=== PATIENT | male | born 1940 | race Caucasian/White ===

== ENCOUNTER 2016-06-18 12:55 | Inpatient (IN) | payer MEDICARE ==
[~2016-06-18] VITALS: Ht 177.8 cm; Wt 100.0 kg
[2016-06-30] MEDS ORDERED: ASPI1TAB69 PO (11:49)
[2016-06-30] MEDS ORDERED: MULT1TAB85 PO (11:49)
[2016-06-30] MEDS ORDERED: SIMV20TA PO (11:49)
[2016-06-30] MEDS ORDERED: LISI20TA PO (11:49)
[2016-07-16] MEDS ORDERED: SODIUM CHLORID 0.9% 500 ML IV SCH (10:00)
[2016-07-16] MEDS ORDERED: INSULIN HUMAN REGULAR 1,000 UNITS/10 ML VIAL SQ PRN (10:00)
[2016-07-16] MEDS ORDERED: METOPROLOL TARTRATE 25 MG TAB PO PRN (10:00)
[2016-07-16 10:26] VITALS: BP 137/71; PULSE 67; RESP 18; TEMP 98.1; O2SAT 96
[2016-07-16] MEDS ORDERED: VANCOMYCIN HCL 1000 MG VIAL ONE (10:29)
[2016-07-16] MEDS ORDERED: ceFAZolin 2 GM PREMIX 50 ML ONE (10:29)
[2016-07-16] MEDS ORDERED: SODIUM CHLOR 0.9% 250 ML INJ 250 ML ONE (10:30)
[2016-07-16] MEDS: LACTATED RINGER'S 1000 ML IV SCH (10:35)
[2016-07-16] MEDS ORDERED: DEXAMETHASONE SOD PHOS 20 MG/5 ML VIAL ONE (11:37)
[2016-07-16] MEDS ORDERED: MIDAZOLAM HCL 2 MG/2 ML VIAL ONE (12:13)
[2016-07-16] MEDS ORDERED: FAMOTIDINE 20 MG/2 ML VIAL ONE (12:13)
[2016-07-16] MEDS ORDERED: fentaNYL CITRATE 250 MCG/5 ML AMP ONE ×2 (12:36→15:50)
[2016-07-16] MEDS ORDERED: ACETAMINOPHEN 1000 MG/100 ML VIAL IV ONE (12:36)
[2016-07-16] MEDS ORDERED: POVIDONE IODINE 7.5% SCRUB 118 ML BOTTLE TOP SCH (13:30)
[2016-07-16] MEDS ORDERED: VANCOMYCIN 1000 MG/NS 250 ML (for <70 kg) IV SCH ×2 (13:30)
[2016-07-16] MEDS: TRANEXAMIC ACID IV SCH ×2 (13:30→13:35)
[2016-07-16] MEDS ORDERED: ceFAZolin 2 GM PREMIX 50 ML IV SCH (13:30)
[2016-07-16] MEDS: EXPAREL PERI-ARTICULAR INJECTION (TOTAL VOL. 60 ML) P-ARTICULR SCH ×4 (13:30→13:49)
[2016-07-16] MEDS: SODIUM CHLORIDE 0.9% IV SCH ×2 (13:30→13:35)
[2016-07-16] MEDS ORDERED: NEOSTIGMINE 3 MG/3 ML SYR IV ONE (13:40)
[2016-07-16] MEDS ORDERED: PHENYLEPH/NS 1000 MCG/10 ML SYR IV ONE (13:40)
[2016-07-16] MEDS ORDERED: LACTATED RINGER'S 1000 ML INJ 2,000 ML IV ONE (13:40)
[2016-07-16] MEDS ORDERED: PROPOFOL 200 MG/20 ML AMP IV ONE (13:40)
[2016-07-16] MEDS ORDERED: ePHEDrine/NS 25 MG/5 ML SYR IV ONE (13:40)
[2016-07-16] MEDS ORDERED: ONDANSETRON HCL 4 MG/2 ML VIAL IV PUSH ONE (13:40)
[2016-07-16] MEDS ORDERED: DEXAMETHASONE SOD PHOS 20 MG/5 ML VIAL IV SCH (13:45)
[2016-07-16] MEDS ORDERED: GENTAMICIN SULFATE 80 MG/2 ML VIAL IRRIGATION ONE (13:49)
--- NOTE | 2016-07-16 15:24 | PD.OP ---
cc: Ananda Colvin MD Operative Report Date of Surgery: Jul 16, 2016 Preoperative Diagnosis: Left hip severe osteoarthritis Postoperative Diagnosis: Same Procedure: Left total hip arthroplasty Anesthesia: Gen. Surgeon: Ananda Colvin Event Planner(s): DENAE Pete The surgical procedure was assisted by my Advanced Registered Nurse Practitioner. My CONTRACTING OFFICER presence was necessary throughout this case for the manipulation and positioning of the surgical extremity. My CONTRACTING OFFICER was assisting me throughout the duration of this procedure. The skill set of an Advance Registered Nurse Practitioner was medically necessary to complete this procedure. During the surgical case, the surgical elastic knitter was working at the back table and the Advance Registered Nurse Practitioner was directly assisting me. Operation and Findings: IMPLANT DESCRIPTION: 1. Wyatt Gription Cup, acetabular size 62. 2. Wyatt AltrX polyethylene, neutral. 4. Corail femoral stem size 13, no collar, high offset. 5. Femoral head/neck metal, 36, +1.5. ESTIMATED BLOOD LOSS: 250 cc. JUSTIFICATION FOR PROCEDURE: The patient has end-stage osteoarthritis to the hip. There is an attached conservative measures pathway form in the chart that describes the nonoperative measures that were undertaken prior to consideration of surgical management. The patient understood the risks and benefits of surgical management. See my office notes for further details. PROCEDURE: The patient was brought back to the operative theatre. Adequate anesthesia was obtained. The patient received intravenous vancomycin and Ancef. The patient was carefully placed on the operative table. The lower extremity was prepped and draped in the usual sterile fashion. Fluoroscopic images were obtained. We made a standard anterior incision over the hip. We dissected through the TFL fascia, exposing the anterior capsule. Arthrotomy was performed in a T-shaped fashion. The capsule was tagged with a #2 FiberWire. End-stage arthritis was identified. Osteotomy was performed through the femoral neck exposing the acetabulum. Remnants of the labrum were resected and osteophytes were removed. We sequentially reamed the acetabulum. We trialed the hip and placed the final cup into position. This was done under fluoroscopic guidance to obtain the appropriate inclination and anteversion. We decided to further fixate the cup with 2 screws. The posterior screw had purchase within the column and had an excellent bite. The lateral screw was within the cancellus bone and had a good to excellent bite. A manhole cover was placed into the acetabular component. We then placed the final polyethylene into position and confirmed that it was well seated. Capsular attachments on the calcar and the inner aspect of the greater trochanter were resected. On the proximal aspect of the femur we used a rongeur , box osteotome, canal finder, sequential broaches and lateralizing rasp. We calcar planed the proximal femur. Then thoroughly irrigated the wound. We trialed the hip with the appropriate size stem. We placed the final stem in to position and trialed again. The hip was stable while it was externally rotated 70 degrees when the leg was lowered to the floor. The final head was applied, and final fluoroscopic images were obtained. The wound was thoroughly irrigated again. Interarticular injection of liposomal bupivacaine was given. The capsule was partially closed with #1 Vicryl, since the capsule was rather thin and found to be in fairly poor condition at the beginning of the case. The deep fascia was closed with a #2 Stratafix, followed by 2-0 Vicryl in the skin and jacinta. Postop plan is to weight-bear as tolerated. DVT prophylaxis will be performed with SCDmorena, JAYLON givens, early mobilization, and Lovenox followed by aspirin. Ananda Colvin MD Jul 16, 2016 15:24
[2016-07-16] MEDS ORDERED: ASPI325T PO (15:26)
[2016-07-16] MEDS ORDERED: ENOX40P SQ (15:26)
[2016-07-16] MEDS ORDERED: NORC5TAB PO (15:26)
[2016-07-16] MEDS ORDERED: NALOXONE HCL 0.4 MG/ML AMP IV PRN (15:30)
[2016-07-16] MEDS ORDERED: SODIUM CHLORIDE 0.9% FLUSH 5 ML FLUSH IVF PRN (15:30)
[2016-07-16] MEDS ORDERED: diphenhydrAMINE HCL 50 MG/ML VIAL IV PRN (15:30)
[2016-07-16] MEDS ORDERED: ONDANSETRON HCL 4 MG/2 ML VIAL IVP PRN (15:30)
[2016-07-16] MEDS ORDERED: ALUMINUM/MAGNESIUM/SIMETH 30 ML CUP PO PRN (15:30)
[2016-07-16] MEDS ORDERED: BISACODYL 10 MG SUPP PR PRN (15:30)
[2016-07-16] MEDS ORDERED: MAGNESIUM HYDROXIDE SUSP 30 ML CUP PO PRN (15:30)
[2016-07-16] MEDS ORDERED: ACETAMINOPHEN/HYDROcodone 325 MG/5 MG TAB PO PRN (15:30)
[2016-07-16] MEDS ORDERED: Post-op Orders (for Pharmacy) MISC XX ONE (15:30)
[2016-07-16] MEDS ORDERED: MORPHINE SULFATE 4 MG/ML INJ IV PUSH PRN (15:30)
[2016-07-16] MEDS ORDERED: MORPHINE SULFATE 4 MG/ML INJ ONE (15:50)
--- NOTE | 2016-07-16 15:50 | HHI.DCPOC ---
Discharge Care Plan Diagnosis: (1) Osteoarthritis of left hip (2) Status post total hip replacement, left Your Health Problems Are: Difficulty with ADL Goals to Promote Your Health * To prevent worsening of your condition and complications * To maintain your health at the optimal level Directions to Meet Your Goals Take your medications as prescribed Follow your dietary instruction Follow activity as directed Keep your appointments as scheduled Take your immunizations and boosters as scheduled If your symptoms worsen call your PCP, if no PCP go to Urgent Care Center or Emergency Room Smoking is Dangerous to Your Health. Avoid second hand smoke Call the 24-hour hour crisis hotline for domestic abuse at Lazaro Fortune Jul 16, 2016 15:49
--- NOTE | 2016-07-16 15:50 | HHI.FF ---
Face to Face Verification Diagnosis: (1) Osteoarthritis of left hip (2) Status post total hip replacement, left Physical Therapy Gait training, Transfer training, bed to chair Hip: Total hip Left LE Weight Bearing: WB as tolerated Left LE Range of Motion: Active ROM Nursing Nursing: Kervin teaching, Dressing changes Dressing Changes: Daily dressing change I have seen patient Thomas Denton on 07/16/16. My clinical findings support the need for the requested home health care services because: Limited ability to care for self High risk of falls I certify that my clinical findings support that this patient is homebound because: Post-op weakness Unsteady gait/balance Lazaro Fortune Jul 16, 2016 15:50
--- NOTE | 2016-07-16 15:50 | RADRPT ---
EXAM DATE/TIME: 07/16/2016 13:33 [facility] COMPARISON: No previous studies available for comparison. INDICATIONS : Left total hip replacement. MEDICAL HISTORY : None. SURGICAL HISTORY : None. ENCOUNTER: Initial ACUITY: 1 day PAIN SCORE: Non-responsive. LOCATION: Left hip. FINDINGS: The patient is status post a total hip arthroplasty with a bipolar prosthesis. Prosthesis is well-sea vinay. Alignment is anatomic. A fracture is not appreciated. CONCLUSION: Anatomic alignment in the AP projection.. Will Bazan MD FACR Board Certified Radiologist. This report was verified electronically.
[2016-07-16] MEDS ORDERED: WALKER WHEELS/F1 MIS (15:52)
[2016-07-16] MEDS ORDERED: COMMODE 3-IN-11 MIS (15:52)
[2016-07-16] MEDS ORDERED: *morphine SULFATE 8 MG/ML PERIprocedure ONLY ONE (15:57)
[2016-07-16] MEDS: SODIUM CHLOR 0.9% 1000 ML INJ 1,000 ML IV SCH (16:00)
[2016-07-16] MEDS ORDERED: DO NOT ADM ANY ANTICOAGULANT DRUGS XX PRN (16:00)
[2016-07-16] MEDS ORDERED: SODIUM CHLORIDE 0.9% IV SCH (17:00)
[2016-07-16] MEDS ORDERED: TRANEXAMIC ACID IV SCH (17:00)
--- NOTE | 2016-07-16 17:02 | RADRPT ---
EXAM DATE/TIME: 07/16/2016 15:50 [facility] COMPARISON: No previous studies available for comparison. INDICATIONS : Status post ORIF left hip. MEDICAL HISTORY : None. SURGICAL HISTORY : None. ENCOUNTER: Subsequent ACUITY: 1 day PAIN SCORE: Non-responsive. LOCATION: Left Hip FINDINGS: The patient is status post a total hip arthroplasty with a bipolar prosthesis. Prosthesis is well-sea vinay. Alignment is anatomic. A fracture is not appreciated. CONCLUSION: Anatomic alignment. Will Bazan MD FACR Board Certified Radiologist. This report was verified electronically.
[2016-07-16] MEDS ORDERED: ZOLPIDEM TARTRATE 5 MG TAB PO PRN (21:00)
[2016-07-16 21:07] VITALS: BP 110/60; PULSE 87; RESP 17; TEMP 97.2; O2SAT 93
[2016-07-16] MEDS: ACETAMINOPHEN/HYDROcodone 325 MG/5 MG TAB PO PRN (23:03)
[2016-07-16] MEDS: SODIUM CHLORIDE 0.9% FLUSH 5 ML FLUSH IVF SCH (23:17)
[2016-07-16 23:35] VITALS: BP 92/54; PULSE 65; RESP 17; TEMP 97; O2SAT 97
[2016-07-17 03:20] VITALS: BP 109/56; PULSE 79; RESP 17; TEMP 96.2; O2SAT 96
[2016-07-17] MEDS: SODIUM CHLOR 0.9% 1000 ML INJ 1,000 ML IV SCH ×2 (03:22→08:46)
[2016-07-17] MEDS: ACETAMINOPHEN/HYDROcodone 325 MG/5 MG TAB PO PRN ×3 (03:56→12:50)
[2016-07-17 05:52] LABS: HEMATOCRIT 34.7 % (39.0-51.0); MEAN CELL VOLUME 94.9 FL (80.0-100.0); MEAN CORPUSCULAR HEMOGLOBIN 32.3 PG (27.0-34.0); PLATELET COUNT 152 TH/MM3 (150-450); RED BLOOD COUNT 3.65 MIL/MM3 (4.50-5.90); RED CELL DISTRIBUTION WIDTH 13.2 % (11.6-17.2); REVIEW FLAG FINAL; WHITE BLOOD COUNT 7.9 TH/MM3 (4.0-11.0)
[2016-07-17] MEDS ORDERED: DEXAMETHASONE SOD PHOS 20 MG/5 ML VIAL IV ONE (07:45)
[2016-07-17 08:00] VITALS: BP 103/52; PULSE 75; RESP 16; TEMP 96.6; O2SAT 95
[2016-07-17] MEDS: SODIUM CHLORIDE 0.9% FLUSH 5 ML FLUSH IVF SCH (08:45)
[2016-07-17] MEDS: LACTATED RINGER'S 1000 ML IV SCH (08:45)
[2016-07-17] MEDS ORDERED: LISINOPRIL 20 MG TAB PO SCH (09:00)
[2016-07-17] MEDS ORDERED: HYDROCHLOROTHIAZIDE 25 MG TAB PO SCH (09:00)
[2016-07-17] MEDS ORDERED: MAGNESIUM HYDROXIDE SUSP 30 ML CUP PO SCH (09:15)
[2016-07-17 12:00] VITALS: BP 99/62; PULSE 73; RESP 18; TEMP 96.9; O2SAT 97
--- NOTE | 2016-07-17 12:48 | PD.ORT.PN ---
Subjective Post Op Day #: 1 Subjective Remarks The patient is OOB in chair with mild pain to the left hip. Patient is requesting to go home today with home health. Objective Vitals Vital Signs Date Time Temp Pulse Resp B/P Pulse Ox O2 Delivery O2 Flow Rate FiO2 07/17/16 08:00 96.6 75 16 103/52 95 07/17/16 03:20 96.2 79 17 109/56 96 07/16/16 23:35 97.0 65 17 92/54 97 07/16/16 21:07 97.2 87 17 110/60 93 07/16/16 20:50 84 16 95 Nasal Cannula 3 07/16/16 20:00 94 Nasal Cannula 3 07/16/16 20:00 90 16 93 Nasal Cannula 3 07/16/16 19:00 80 14 116/68 97 Nasal Cannula 3 07/16/16 18:00 89 12 119/66 94 Nasal Cannula 2 07/16/16 17:00 98.3 70 12 123/60 96 Nasal Cannula 2 07/16/16 16:30 64 16 116/56 99 Nasal Cannula 2 07/16/16 16:15 66 16 115/54 98 Nasal Cannula 2 07/16/16 16:00 56 16 104/50 98 Nasal Cannula 2 07/16/16 15:45 80 16 101/51 98 Nasal Cannula 2 07/16/16 15:40 98.0 96 16 101/54 96 Nasal Cannula 2 I/O 07/16/16 07/16/16 07/16/16 07/17/16 07/17/16 07/17/16 07:00 15:00 23:00 07:00 15:00 23:00 Intake Total 250 ml 240 ml Output Total 75 ml 350 ml Balance 175 ml -110 ml Intake Oral 240 ml IV Total 250 ml Output Urine Total 75 ml 350 ml # Bowel Movements 0 Result Diagram: 07/17/16 0523 Procedures Left JACIEL Objective Remarks The patient is resting in bed. Dressings changed with scant serosanguineous drainage. Incision well approximated with surgical clips intact. No redness or s/s of infection. Mild ecchymosis. EHL/TA/G intact. 2+ pedal pulse. Calf is soft and nontender. Minimal swelling. + SILT. Assessment & Plan Ortho Post Op Day #: 1 Problem List: Assessment and Plan POD #1: Left JACIEL 1. WBAT LLE 2. Lovenox for DVT prophylaxis 3. Ice to the left hip PRN 4. Stable for discharge home with home health today. Lazaro Fortune Jul 17, 2016 12:48
[2016-07-17] MEDS ORDERED: ENOXAPARIN SODIUM 40 MG/0.4 ML SYRINGE SQ SCH (15:00)
[2016-07-17] MEDS ORDERED: MULTIVITAMINS/MINERALS THERAPEUTIC TAB PO SCH (21:00)
[2016-07-17] MEDS ORDERED: DOCUSATE SODIUM 100 MG CAP PO SCH (21:00)
[2016-07-17] MEDS ORDERED: SENNOSIDES 8.6 MG TAB PO SCH (21:00)
[2016-07-18] MEDS ORDERED: NON-FORMULARY DRUG (Lisinopril-Hctz 1 TAB) PO SCH (09:00)
[2016-07-18] MEDS ORDERED: PRAVASTATIN SOD 40 MG TAB PO SCH (09:00)
--- NOTE | 2016-07-20 17:46 | HHI.DS ---
Discharge Summary Admission Date Jul 16, 2016 at 09:32 Discharge Date: Jul 17, 2016 Admitting Diagnosis OA of the left hip Status post total hip replacement, left Diagnosis: (1) Osteoarthritis of left hip Diagnosis: Principal (2) Status post total hip replacement, left Diagnosis: Principal Procedures Left JACIEL Brief History This is a 76 year old male patient with severe OA of the left hip CBC/BMP: 07/17/16 0523 PE at Discharge The patient is resting in bed. Dressings changed with scant serosanguineous drainage. Incision well approximated with surgical clips intact. No redness or s/s of infection. Mild ecchymosis. EHL/TA/G intact. 2+ pedal pulse. Calf is soft and nontender. Minimal swelling. + SILT. Hospital Course The patient was admitted to the hospital for severe left hip OA to have a left JACIEL. The patient's surgery went well without complication. The patient was placed on DVT prophylaxis post operatively. The patient is WBAT. The patient has a normal diet. The patient was discharged home with home health on POD #1. The patient will f/u in the office in [address] Colvin. Pt Condition on Discharge: Stable Discharge Disposition: Disch w/ Home Health Serv Discharge Instructions Diet Instructions: As Tolerated, No Restrictions Activities You Can Perform: Weight Bearing as [place] Activities to Avoid: Strenuous Activity Follow up Referrals: Orthopedics with Ananda Colvin MD SNF/[facility]/ with [facility] New Medications: Aspirin (Aspirin) 325 Mg Tab 325 MG PO DAILY Start Aspirin after Lovenox is completed. Prevent Blood Clot # 30 Ref 0 TAB Commode 3-in-1 (Commode 3-in-1) 1 Mis Mis 1 EA .ROUTE DIRECTED #1 Ref 0 EA Enoxaparin Inj (Lovenox Inj) 40 Mg/0.4 Ml Syr 40 MG SQ DAILY Start Aspirin after Lovenox is completed. Blood Clot Prevention # 10 Ref 0 SYRINGE Hydrocodone-Acetaminophen ([place]) 5-325 mg Tab 1-2 TAB PO Q4H PRN PAIN #60 Ref 0 TAB Walker with Front Wheels (Walker with Front Wheels) 1 Mis Mis 1 EA .ROUTE DIRECTED #1 Ref 0 EA Continued Medications: Lisinopril-Hctz (Lisinopril-Hctz) 20-12.5 Mg Tab 1 TAB PO EVERY OTHER DAY Blood Pressure Management #30 Ref 0 TAB Multiple Vitamins W/ Minerals (Multivitamin Men) 1 Tab Tab 1 TAB PO DAILY Nutritional Supplement Ref 0 TAB Simvastatin (Simvastatin) 20 Mg Tab 20 MG PO EVERY OTHER DAY Cholesterol Management #30 Ref 0 TAB Discontinued Medications: Aspirin (Aspirin) 81 Mg Tabdr 81 MG PO DAILY TAB Lazaro Fortune Jul 20, 2016 17:46
== END 2016-07-17 15:08 | disposition home health service (06) | DRG 470 ==
LOC: HSDI 07-16 09:32 → N06B 07-16 21:09
PROVIDERS: ADMIT Orthopaedic Surgery; ATTEND Orthopaedic Surgery
PROC: 0SRB02A Replacement of Left Hip Joint with Metal on Polyethylene Synthetic Substitute, Uncemented, Open Approach (ICD-10-PCS; principal; 2016-07-16 12:52)
DX: M16.12 Unilateral primary osteoarthritis, left hip (principal); I10 Essential (primary) hypertension; M25.752 Osteophyte, left hip; E78.5 Hyperlipidemia, unspecified
CPT/HCPCS: 73502; 76000; 85027; 86850; 86900; 86901; 94150; C1776; C9290; J0131; J0690; J1100; J1580; J1650; J2250; J2270; J2370; J2405; J2710; J3010; J3370; J7030; J7050; J7120

== ENCOUNTER → 2016-06-30 | Outpatient (CLI) | payer MEDICARE ==
[~2016-06-30] MED LIST: ASPI1TAB69 PO; ASPI325T PO; ASPI81TA82 PO; COMMODE 3-IN-11 MIS; ENOX40P SQ; LISI-586 PO; LISI20TA PO; MULT1TAB85 PO; NORC5TAB PO; SIMV20 PO; SIMV20TA PO; TAMS0.4C67 PO; WALKER WHEELS/F1 MIS; ZOFR4TAB3 SL
--- NOTE | 2016-07-01 08:36 | EKG ---
Date Performed: 06/30/2016 Time Performed: 11:42:49 PTAGE: 76 years EKG: Sinus rhythm WITH FIRST DEGREE AV BLOCK MARKED LEFT AXIS DEVIATION ABNORMAL ECG PREVIOUS TRACING : 01/29/2004 23.31 Compared to prior tracing no significant change DOCTOR: Thomas Farooq Interpretating Date/Time 07/01/2016 08:34:51
== END ==
LOC: CPRE 11:17
PROVIDERS: ATTEND Orthopaedic Surgery
DX: Z01.810 Encounter for preprocedural cardiovascular examination (principal); M25.50 Pain in unspecified joint; M16.12 Unilateral primary osteoarthritis, left hip; I44.30 Unspecified atrioventricular block; R94.31 Abnormal electrocardiogram [ECG] [EKG]
CPT/HCPCS: 93005

== ENCOUNTER → 2016-09-30 | Day surgery (SDC) | payer MEDICARE ==
[~2016-09-30] MED LIST changes: -ASPI1TAB69 PO; -ASPI81TA82 PO; +LACTATED RINGER'S 1000 ML INJ 1,000 ML ONE; +LIDOCAINE 1%/EPINEPHrine 1:100,000 SOLN 20 ML VIAL ONE; -LISI-586 PO; +ONDANSETRON HCL 4 MG/2 ML VIAL IV PUSH ONE; +PROPOFOL 200 MG/20 ML AMP IV ONE; -SIMV20 PO; +SODIUM CHLORIDE 0.9% 20 ML VIAL ONE; -TAMS0.4C67 PO; -ZOFR4TAB3 SL; +ceFAZolin 2 GM PREMIX 50 ML ONE
--- NOTE | 2016-10-01 12:37 | MP ---
cc: MICKEY ALFRED DATE OF SURGERY PREOPERATIVE DIAGNOSIS Right ear melanoma in situ. POSTOPERATIVE DIAGNOSIS Right ear melanoma in situ. OPERATION Excision right ear melanoma in situ and full-thickness skin graft reconstruction from the right neck. SURGEON Dr. Natalia Alfred. 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 The lesion is quite large. Vertical dimension was 2 cm and also covering the anterior part of the empty fold between the helix and the antihelix and also posterior over the helical rim. The lesion seems to have a small area of thicker growth towards the superior aspect of when the final pathology is received a few days down the line. The patient underwent a detailed explanation of the excision process. Currently, there is no need for sentinel lymph node biopsy. The reconstruction using a full-thickness skin graft was discussed. The possibility that the graft may or may not take and future reconstruction may be required. The patient is willing to go ahead with the surgery. PROCEDURE IN DETAIL The patient was brought to the operating room, was given supine position. Anesthesia was started. Prep and drape was done. IV antibiotic had been given. Preoperative markings were reinforced. A 1-cm margin was taken on all sides. The area was tumesced with approximately 12 mL of mixture of saline and lidocaine with epinephrine. The incision was made around the periphery of the lesion, outlined and then starting posteriorly the dissection was carried out leaving a thin layer of perichondrium behind until the edge of the ear cartilage was reached. Then the dissection was similarly started from the anterior aspect and brought back towards the cartilage rim and then going from 12 o'clock to 6 o'clock direction the cartilage edge was carefully freed preserving it completely for maintaining the shape of the ear. The specimen was suture marked superiorly, was sent for permanent pathology only. Hemostasis was completed with light Bovie. The area was covered with moist saline gauze. A slightly oversized skin graft was harvested. Overall the graft dimensions were 6 x 4 cm. The graft was harvested full-thickness including fat from the donor site. Hemostasis was completed and the site was covered. The graft was defatted thoroughly first then a marking pen line was used going approximately 1.5 cm from one of the edges and taking approximately a centimeter of the marking approximately a centimeter strip of the graft. This portion of the graft was thinned using sharp scissors and blade removing approximately slightly over half of the dermal thickness to provide a swimming pool cleaner skin over the rim of the helix itself. The rest of the graft was also appropriately cleaned. The thin portion of the graft was applied to the 12 o'clock and 6 o'clock position of the helical rim and then a few stitches were placed at the anterior border then using buttressing 5-0 Prolene sutures. The sutures were started on the anterior aspect of the ear in the antihelical groove going out of the cartilage and then making a U-turn in the cartilage itself without getting the posterior aspect of the graft and then tying it in anteriorly again to fit the graft flush with the antihelical groove. Once this part of the graft positioning was completed, the rest of the graft was then draped over the posterior aspect. Excess graft was trimmed as the graft was being inset. Once all of the graft was inset, additional [id number] trans-cartilagenous sutures were used to align the posterior aspect of the graft flush with the cartilage as well. The donor site was closed with deep inverting Vicryl sutures and Dermabond. The ear was dressed with Xeroform and two eye pads were placed anteriorly posteriorly and then they were sutured in place with [id number] Vicryl sutures and the rest of the dressing was completed. The patient remained stable through the procedure. Intraoperative blood loss less than 5 mL. No complications. SIGNED, NOT FULLY REVIEWED MD JOHNNIE Eduardo/ /8:18 PM /12:25 PM [email or web address]
== END | disposition home or self-care (01) ==
LOC: ESDC 09:06
PROVIDERS: ATTEND Plastic Surgery
DX: C43.21 Malignant melanoma of right ear and external auricular canal (principal)
CPT/HCPCS: 00300; 11644; 15260; 88305; J0690; J2405; J3010; J7120